=== PATIENT | female | born 1970 | race Caucasian/White ===

== ENCOUNTER 2022-07-08 22:27 | Emergency (ER) | payer BC, OTHER ==
[~2022-07-08] VITALS: Ht 157.5 cm; Wt 210.9 kg
[2022-07-08 22:49] VITALS: BP 128/84
--- NOTE | 2022-07-08 23:00 | NUR ---
[employer] OPERATOR AT PT'S BEDSIDE
[2022-07-08] MEDS ORDERED: CEPH500C2 PO (23:52)
--- NOTE | 2022-07-08 23:56 | NUR ---
Patient discharged to home in stable condition. Written and verbal after care instructions given. Patient verbalizes understanding of instruction.
== END 2022-07-09 00:16 | disposition home or self-care (01) ==
LOC: ER 22:34
DX: S60.455A Superficial foreign body of left ring finger, initial encounter (principal); W45.8XXA Other foreign body or object entering through skin, initial encounter; Y93.89 Activity, other specified; Y92.89 Other specified places as the place of occurrence of the external cause; Y99.8 Other external cause status
CPT/HCPCS: 73140-TC

== ENCOUNTER 2023-07-06 16:36 | Emergency (ER) | payer BC ==
[~2023-07-06] VITALS: Ht 157.5 cm; Wt 72.6 kg
[~2023-07-06 16:36] MED LIST: CEPH500C2 PO
[2023-07-06] MEDS ORDERED: ACETAMINOPHEN ES 500 MG TABLET PO ONE (17:30)
[2023-07-06] MEDS ORDERED: ACETAMINOPHEN ES 500 MG TABLET ONE (17:43)
[2023-07-06 18:06] LABS: APPEARANCE,URINE SLIGHTLY CLOUDY (CLEAR); BILIRUBIN,URINE 1+ (NEGATIVE); BLOOD, URINE 1+ Ery/uL (NEGATIVE); COLOR,URINE YELLOW (YELLOW); KETONES,URINE TRACE mg/dL (NEGATIVE); LEUKOCYTE ESTERASE ,URINE 2+ (NEGATIVE); NITRITE, URINE NEGATIVE (NEGATIVE); PROTEIN,URINE 2+ mg/dl (NEGATIVE); UGLUCOSE NEGATIVE (NEGATIVE); UROBILINOGEN,URINE 0.2 EU/dL (0.2)
[2023-07-06 18:48] LABS: ADD URINE CULTURE YES; BACTERIA,URINE 2+ /HPF (None Seen); SQUAMOUS EPITHELIAL CELL,UR 0-2 /HPF (None Seen); WBC,URINE 21-50 /HPF (0-3)
[2023-07-06] MEDS ORDERED: CEPH500C2 PO (19:03)
[2023-07-06 19:28] VITALS: BP 124/76; TEMP 101.2; O2SAT 98
== END 2023-07-06 19:28 | disposition home or self-care (01) ==
LOC: ER 16:38
DX: N39.0 Urinary tract infection, site not specified (principal); Z79.899 Other long term (current) drug therapy; Z20.822 Contact with and (suspected) exposure to COVID-19
CPT/HCPCS: 99284; 71045; 87426; 81001; C9803